=== PATIENT | male | born 1965 | race Caucasian/White ===

== ENCOUNTER 2022-05-12 13:33 | Emergency (ER) | payer OTHER, SELFPAY ==
[2022-05-12 13:44] VITALS: BP 114/81; PULSE 56; RESP 16; TEMP 35.8; O2SAT 100
--- NOTE | 2022-05-12 14:20 | ED.EYEPROB ---
HPI - Eye Problem General Chief complaint: Eye Problems Stated complaint: right eye pain Time Seen by Provider: 05/12/22 14:20 Source: patient Mode of arrival: ambulatory Limitations: no limitations History of Present Illness HPI Narrative: 56 y/o male presented for c/o right eye pain after injury today at work. 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 Endorses the house was old and dirty with large amounts of dust/dirt. Continues to report FB sensation, photophobia, and blurred vision to right eye. Denies headache or vomiting. Does not wear contact lenses. Does not follow with opth. chief complaint: eye pain Related Data Home Medications Medication Instructions Recorded Confirmed propranolol 80 mg capsule,24 80 mg PO DIRECTED 05/12/22 05/12/22 hr,extended release Allergies Allergy/AdvReac Type Severity Reaction Status Date / Time No Known Allergies Allergy Verified 05/12/22 13:56 Review of Systems Review of Systems: CONSTITUTIONAL: Denies body aches, fever, chills EYES:Endorses redness and pain to right eye, FB sensation, photophobia ENT: Denies rhinorrhea, congestion, sore throat, or otalgia. CARDIOVASCULAR: Denies chest pain, palpitations GASTROINTESTINAL: Denies abdominal pain, nausea, vomiting, or diarrhea. SKIN: Denies rash, itching, or wounds. MUSCULOSKELETAL: Denies back pain, joint pain, or myalgia. NEUROLOGIC: Denies headache All systems reviewed & are unremarkable except as noted in HPI and below PMFSH Comments At time of signature, I have reviewed and agree with nursing past medical, surgical, social and family history unless otherwise noted. Please see nursing chart for further information. There is no relevant family history pertinent to the presenting complaint Exam Narrative: GENERAL: Well-appearing HEAD: Normocephalic, atraumatic. EYES: right corneal abrasion at 3o'clock position over the iris; right conjunctival injection with mild medial conjunctival hemorrhage, abrasion over right upper eye lid below brow EOMI. PERRLA. Direct visualization showed corneal abrasion at 3 o'clock position over iris ENT: Mucous membranes pink and moist. No rhinorrhea. CHEST: Clear to auscultation. SKIN: Warm, dry, no rash. Normal skin turgor. NEURO: No focal deficits. Alert and oriented x3 Course Course Emergency Course: Patient is aware of diagnosis, understands and agrees to treatment plan. Anticipatory guidance given. Patient agrees to follow-up as directed and is aware of reasons to seek care at the emergency department. Portions of this record may have been created with voice recognition software Level of Care: Express Care Visit Vital Signs Vital signs: Vital Signs Temperature 96.5 F L 05/12/22 13:44 Pulse Rate 56 L 05/12/22 13:44 Respiratory Rate 16 05/12/22 13:44 Blood Pressure 114/81 05/12/22 13:44 Pulse Oximetry 100 05/12/22 13:44 Oxygen Delivery Room Air 05/12/22 13:44 Temperature 96.5 F L 05/12/22 13:44 Pulse Rate 56 L 05/12/22 13:44 Respiratory Rate 16 05/12/22 13:44 Blood Pressure 114/81 05/12/22 13:44 Pulse Oximetry 100 05/12/22 13:44 Oxygen Delivery Room Air 05/12/22 13:44 Procedures FB Removal Eye Foreign Body #1: Foreign Body Removal Date: 05/12/22 Location: eye (R) Topical anesthetic used: tetracaine Foreign body: other (dirt) Evidence of corneal penetration: Yes Technique: irrigation, eye wash bottle and cotton tip swab Procedure performed under: direct visualization with magnification and other (banks lamp) Patient tolerated procedure: well and no complications Foreign Body Removal Narrative: Patient appeared to have dust inside the corneal abrasion, successfully removed with saline soaked cotton tipped swab and irrigation. MDM - Eye Problem MDM Narrative Medical decision making narrative: Right Corneal
== END 2022-05-12 15:36 | disposition home or self-care (01) ==
PROVIDERS: Emergency Provider Nurse Practitioner Family; PCP Family Medicine
DX: T15.01XA Foreign body in cornea, right eye, initial encounter (principal); W22.8XXA Striking against or struck by other objects, initial encounter; Y99.0 Civilian activity done for income or pay
CPT/HCPCS: 65220; 99213; A9270; G0463